=== PATIENT | female | born 1960 | race Caucasian/White ===

== ENCOUNTER 2019-05-04 13:27 | Inpatient (IN) | payer OTHER ==
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
[2019-05-04 16:01] VITALS: BMI 80.1
[2019-05-04] MEDS ORDERED: hydrOXYzine PAMOATE 25 MG CAPSULE (FP) PO PRN (16:10)
[2019-05-04] MEDS ORDERED: MENTHOL/PHENOL 1 EACH UD MM PRN (16:10)
[2019-05-04] MEDS ORDERED: guaiFENesin 200 MG/10 ML 10 ML UNIT-DOSE CUPS PO PRN (16:10)
[2019-05-04] MEDS ORDERED: MAGNESIUM HYDROX 2400MG/30ML ORAL SUSPENSION 30 ML CUP PO PRN (16:10)
[2019-05-04] MEDS ORDERED: LOPERAMIDE HCL 2 MG CAPSULE PO PRN (16:10)
[2019-05-04] MEDS ORDERED: MAGNESIUM CITRATE 300 ML BOTTLE PO PRN (16:10)
[2019-05-04] MEDS ORDERED: P-EPHED 60MG/TRIPROLIDI 2.5MG TABLET PO PRN (16:10)
[2019-05-04] MEDS ORDERED: MAG HYDROX/AL HYDROX/SIMETH 30 ML UNIT-DOSE CUP PO PRN (16:10)
[2019-05-04] MEDS ORDERED: ZAFIRLUKAST 10 MG PO SCH (16:30)
--- NOTE | 2019-05-04 16:36 | PN ---
Teaching Attending Note Name of Resident: Barbara Mabry ATTENDING PHYSICIAN STATEMENT I saw and evaluated the patient. I reviewed the resident's note and discussed the case with the resident. I agree with the resident's findings and plan as documented. SUBJECTIVE:this 58 years old female with cocaine dependence,schizophrenia,mmtp 3e0 mgs/day,last medicated today, iddm,hypertension,ambulation with cane OBJECTIVE: Vital Signs Temperature 98.8 F 05/04/19 16:24 Pulse Rate 74 05/04/19 16:24 Respiratory Rate 20 05/04/19 16:24 Blood Pressure 201/101 H 05/04/19 16:24 O2 Sat by Pulse Oximetry (%) ASSESSMENT AND PLAN: this 58 years old female with cocaine dependence,mmtp 30 mgs/day,iddm,htn, schizophrenia,for rehab as protocol , medically clear for rehab
[2019-05-04] MEDS ORDERED: glipiZIDE-XL 5 MG TAB.ER.24 PO SCH (17:15)
[2019-05-04] MEDS: metFORMIN HCL 500 MG TABLET (FP) PO SCH (18:12)
[2019-05-04] MEDS: LISINOPRIL 20 MG TABLET (FP) PO SCH (18:13)
[2019-05-04] MEDS: ASPIRIN COATED 81 MG TABLET.EC PO SCH (18:13)
[2019-05-04] MEDS: THIAMINE HCL 100 MG TABLET (FP) PO SCH (21:54)
[2019-05-04] MEDS: MONTELUKAST NA 10 MG TABLET PO SCH (21:54)
[2019-05-04] MEDS: ATORVASTATIN CA 10 MG TABLET (FP) PO SCH (21:54)
[2019-05-04] MEDS: INSULIN (LEVEMIR) 100 UNITS/ML UNITS SQ SCH (21:56)
[2019-05-04] MEDS: SELENIUM SULFIDE 2.5% LOTION 4 OZ. TP SCH (21:58)
[2019-05-04] MEDS ORDERED: MELATONIN 5 MG TABLETS PO PRN (22:00)
[2019-05-04] MEDS ORDERED: PT OWN MED DRAWER 7, Y5N ONE (22:32)
[2019-05-05] MEDS ORDERED: PT OWN MED DRAWER 7, Y5N ONE ×2 (05:57→23:18)
[2019-05-05] MEDS: glipiZIDE-XL 2.5 MG TAB.ER.24 PO SCH (06:41)
[2019-05-05] MEDS: metFORMIN HCL 500 MG TABLET (FP) PO SCH ×2 (06:41→16:39)
[2019-05-05] MEDS ORDERED: cloNIDine HCL 0.1 MG TABLET PO ONE (07:10)
--- NOTE | 2019-05-05 07:15 | PN ---
[facility] Progress Note Note: Patient's blood pressure this visit is B/P 184/110. Patient is asymptomatic Vital Signs Temperature 97.7 F 05/05/19 06:44 Pulse Rate 81 05/05/19 06:44 Respiratory Rate 18 05/05/19 06:44 Blood Pressure 184/110 H 05/05/19 06:44 O2 Sat by Pulse Oximetry (%) Action: Clonidine 0.1mg tablet oral ordered
--- NOTE | 2019-05-05 09:14 | EKG ---
Test Reason : Blood Pressure : / mmHG Vent. Rate : 063 BPM Atrial Rate : 063 BPM P-R Int : 158 ms QRS Dur : 082 ms QT Int : 424 ms P-R-T Axes : 043 003 029 degrees QTc Int : 433 ms NORMAL SINUS RHYTHM SEPTAL INFARCT , AGE UNDETERMINED ABNORMAL ECG NO PREVIOUS ECGS AVAILABLE Confirmed by MD Dain, Duane ([id number]) on 05/05/2019 9:14:10 AM Referred By: Confirmed By:Duane Gautam MD
[2019-05-05] MEDS: PRENATAL VITAMINS W/ FOLIC ACID TABLET (FP) PO SCH (09:19)
[2019-05-05] MEDS: ASPIRIN COATED 81 MG TABLET.EC PO SCH (09:19)
[2019-05-05] MEDS: LISINOPRIL 20 MG TABLET (FP) PO SCH (09:19)
[2019-05-05] MEDS: INSULIN (LEVEMIR) 100 UNITS/ML UNITS SQ SCH ×2 (09:20→21:39)
[2019-05-05] MEDS: SELENIUM SULFIDE 2.5% LOTION 4 OZ. TP SCH (09:20)
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
[2019-05-05] MEDS ORDERED: METHADONE HCL 10 MG TABLET PO ONE (11:06)
[2019-05-05 11:41] LABS: HEMATOCRIT 37.2 % (32.4-45.2); HEMOGLOBIN 12.3 GM/dL (10.7-15.3); MCH 27.1 pg (25.7-33.7); MCHC 32.9 g/dl (32.0-36.0); MEAN CELL VOLUME 82.4 fl (80-96); MEAN PLT VOLUME 11.2 fl (7.5-11.1); PLATELET COUNT 140 K/MM3 (134-434); RBC 4.52 M/mm3 (3.60-5.2); RDW 14.3 % (11.6-15.6); WHITE BLOOD COUNT 6.3 K/mm3 (4.0-10.0)
[2019-05-05 11:45] LABS: EPI CELLS 5.9 /HPF (0-5/HPF); HYALINE CASTS 1 /lpf (0-8); URINE APPEARANCE CLEAR; URINE BACTERIA 138.3 /hpf (NEGATIVE); URINE BILIRUBIN NEGATIVE (NEGATIVE); URINE COLOR YELLOW; URINE GLUCOSE (UA) 3+ (NEGATIVE); URINE KETONE NEGATIVE (NEGATIVE); URINE LEUK ESTERASE NEGATIVE (NEGATIVE); URINE NITRITE NEGATIVE (NEGATIVE); URINE PROTEIN 2+ (NEGATIVE); URINE RBC 3 /hpf (0-4); URINE UROBILINOGEN 0.2 mg/dL (0.2-1.0); URINE WBC 2 /hpf (0-5)
[2019-05-05 11:53] LABS: ALBUMIN 2.6 g/dl (3.4-5.0); BILIRUBIN,TOTAL 0.2 mg/dL (0.2-1); BLOOD UREA NITROGEN 14.7 mg/dL (7-18); CALCIUM 8.7 mg/dL (8.5-10.1); CREATININE 0.7 mg/dL (0.55-1.3); POTASSIUM 4.1 mmol/L (3.5-5.1); TOT PROT 7.2 g/dl (6.4-8.2)
[2019-05-05] MEDS: NICOTINE POLACRILEX 2 MG GUM BC PRN (14:04)
[2019-05-05 15:18] LABS: RPR NONREACTIVE (NONREACTIVE)
[2019-05-05] MEDS: INSULIN SLIDING SCALE (NOVOLOG) 1 VIAL SQ SCH ×2 (16:30→21:57)
[2019-05-05] MEDS: THIAMINE HCL 100 MG TABLET (FP) PO SCH (21:37)
[2019-05-05] MEDS: MONTELUKAST NA 10 MG TABLET PO SCH (21:37)
[2019-05-05] MEDS: ATORVASTATIN CA 10 MG TABLET (FP) PO SCH (21:37)
[2019-05-06] MEDS ORDERED: PT OWN MED DRAWER 7, Y5N ONE ×2 (03:03→08:34)
[2019-05-06] MEDS: METHADONE HCL 10 MG TABLET PO SCH (06:20)
[2019-05-06] MEDS: metFORMIN HCL 500 MG TABLET (FP) PO SCH ×2 (06:21→16:42)
[2019-05-06] MEDS: glipiZIDE-XL 2.5 MG TAB.ER.24 PO SCH (06:21)
[2019-05-06] MEDS: INSULIN (LEVEMIR) 100 UNITS/ML UNITS SQ SCH ×2 (07:35→21:25)
[2019-05-06] MEDS: INSULIN SLIDING SCALE (NOVOLOG) 1 VIAL SQ SCH ×4 (07:38→21:27)
[2019-05-06] MEDS: SELENIUM SULFIDE 2.5% LOTION 4 OZ. TP SCH (09:05)
[2019-05-06] MEDS: LISINOPRIL 20 MG TABLET (FP) PO SCH (09:05)
[2019-05-06] MEDS: PRENATAL VITAMINS W/ FOLIC ACID TABLET (FP) PO SCH (09:06)
[2019-05-06] MEDS: ASPIRIN COATED 81 MG TABLET.EC PO SCH (09:06)
[2019-05-06] MEDS: ARIPiprazole 2 MG TABLET PO SCH (11:00)
[2019-05-06] MEDS ORDERED: INSULIN (NOVOLOG) ASPART 100 UNITS/ML 10ML VIAL ONE ×2 (11:41→16:32)
[2019-05-06] MEDS: THIAMINE HCL 100 MG TABLET (FP) PO SCH (21:24)
[2019-05-06] MEDS: MONTELUKAST NA 10 MG TABLET PO SCH (21:24)
[2019-05-06] MEDS: ATORVASTATIN CA 10 MG TABLET (FP) PO SCH (21:24)
[2019-05-07] MEDS ORDERED: PT OWN MED DRAWER 7, Y5N ONE ×2 (03:16→08:40)
[2019-05-07] MEDS: INSULIN SLIDING SCALE (NOVOLOG) 1 VIAL SQ SCH ×4 (06:21→21:20)
[2019-05-07] MEDS: METHADONE HCL 10 MG TABLET PO SCH (06:22)
[2019-05-07] MEDS: ACETAMINOPHEN 325 MG TABLET (FP) PO PRN (06:23)
[2019-05-07] MEDS: metFORMIN HCL 500 MG TABLET (FP) PO SCH ×2 (06:23→16:50)
[2019-05-07] MEDS: glipiZIDE-XL 2.5 MG TAB.ER.24 PO SCH (06:23)
[2019-05-07] MEDS: INSULIN (LEVEMIR) 100 UNITS/ML UNITS SQ SCH ×2 (07:16→21:19)
[2019-05-07] MEDS ORDERED: COLLOIDAL OATMEAL 1 BAR EACH TP PRN (08:38)
[2019-05-07] MEDS: ASPIRIN COATED 81 MG TABLET.EC PO SCH (09:46)
[2019-05-07] MEDS: PRENATAL VITAMINS W/ FOLIC ACID TABLET (FP) PO SCH (09:46)
[2019-05-07] MEDS: ARIPiprazole 2 MG TABLET PO SCH (09:46)
[2019-05-07] MEDS: LISINOPRIL 20 MG TABLET (FP) PO SCH (09:46)
[2019-05-07] MEDS: SELENIUM SULFIDE 2.5% LOTION 4 OZ. TP SCH (09:47)
[2019-05-07] MEDS: IBUPROFEN 400 MG TABLET (FP) PO PRN (09:48)
[2019-05-07] MEDS: NICOTINE POLACRILEX 2 MG GUM BC PRN (09:50)
--- NOTE | 2019-05-07 10:11 | PN ---
[facility] Progress Note Note: Vital Signs Temperature 97.0 F L 05/07/19 07:01 Pulse Rate 66 05/07/19 09:37 Respiratory Rate 18 05/06/19 06:44 Blood Pressure 128/84 05/07/19 09:37 O2 Sat by Pulse Oximetry (%) Laboratory Last Values WBC 6.3 K/mm3 (4.0-10.0) 05/05/19 08:10 RBC 4.52 M/mm3 (3.60-5.2) 05/05/19 08:10 Hgb 12.3 GM/dL (10.7-15.3) 05/05/19 08:10 Hct 37.2 % (32.4-45.2) 05/05/19 08:10 MCV 82.4 fl (80-96) 05/05/19 08:10 MCH 27.1 pg (25.7-33.7) 05/05/19 08:10 MCHC 32.9 g/dl (32.0-36.0) 05/05/19 08:10 RDW 14.3 % (11.6-15.6) 05/05/19 08:10 Plt Count 140 K/MM3 (134-434) 05/05/19 08:10 MPV 11.2 fl (7.5-11.1) H 05/05/19 08:10 Sodium 136 mmol/L (136-145) 05/05/19 08:10 Potassium 4.1 mmol/L (3.5-5.1) 05/05/19 08:10 Chloride 102 mmol/L (98-107) 05/05/19 08:10 Carbon Dioxide 30 mmol/L (21-32) 05/05/19 08:10 Anion Gap 4 MMOL/L (8-16) L 05/05/19 08:10 BUN 14.7 mg/dL (7-18) 05/05/19 08:10 Creatinine 0.7 mg/dL (0.55-1.3) 05/05/19 08:10 Est GFR (CKD-EPI)AfAm 109.91 05/05/19 08:10 Est GFR (CKD-EPI)NonAf 94.84 05/05/19 08:10 POC Glucometer 202 UNITS (80-120) 05/07/19 06:20 Random Glucose 310 mg/dL (74-106) H 05/05/19 08:10 Calcium 8.7 mg/dL (8.5-10.1) 05/05/19 08:10 Total Bilirubin 0.2 mg/dL (0.2-1) 05/05/19 08:10 AST 19 U/L (15-37) 05/05/19 08:10 ALT 30 U/L (13-61) 05/05/19 08:10 Alkaline Phosphatase 117 U/L (45-117) 05/05/19 08:10 Total Protein 7.2 g/dl (6.4-8.2) 05/05/19 08:10 Albumin 2.6 g/dl (3.4-5.0) L 05/05/19 08:10 Urine Color Yellow 05/05/19 09:00 Urine Appearance Clear 05/05/19 09:00 Urine pH 7.0 (5.0-8.0) 05/05/19 09:00 Ur Specific [place] 1.029 (1.010-1.035) 05/05/19 09:00 Urine Protein 2+ (NEGATIVE) H 05/05/19 09:00 Urine Glucose (UA) 3+ (NEGATIVE) H 05/05/19 09:00 Urine Ketones Negative (NEGATIVE) 05/05/19 09:00 Urine Blood Trace (NEGATIVE) 05/05/19 09:00 Urine Nitrite Negative (NEGATIVE) 05/05/19 09:00 Urine Bilirubin Negative (NEGATIVE) 05/05/19 09:00 Urine Urobilinogen 0.2 mg/dL (0.2-1.0) 05/05/19 09:00 Ur Leukocyte Esterase Negative (NEGATIVE) 05/05/19 09:00 Urine WBC (Auto) 2 /hpf (0-5) 05/05/19 09:00 Urine RBC (Auto) 3 /hpf (0-4) 05/05/19 09:00 Urine Casts (Auto) 1 /lpf (0-8) 05/05/19 09:00 U Epithel Cells (Auto) 5.9 /HPF (0-5/HPF) 05/05/19 09:00 Urine Bacteria (Auto) 138.3 /hpf (NEGATIVE) 05/05/19 09:00 RPR Titer Nonreactive (NONREACTIVE) 05/05/19 08:10 HIV 1&2 Antibody Screen Negative 05/05/19 08:10 HIV P24 Antigen Negative 05/05/19 08:10 TB (QFT) Incubation (.) 05/05/19 08:10 TB Test (QFT) Nil 0.05 IU/mL (.) 05/05/19 08:10 TB Test (QFT) Mitogen >10.00 IU/mL (.) 05/05/19 08:10 TB Test (QFT) Antigen 0.11 IU/mL (.) 05/05/19 08:10 TB Test (QFT) Negative (Negative) 05/05/19 08:10 TB Positive Criteria (.) 05/05/19 08:10 labs reviewed follow up with PCP upon d/c re:proteinuria most like d/t DMII
[2019-05-07] MEDS ORDERED: INSULIN (NOVOLOG) ASPART 100 UNITS/ML 10ML VIAL ONE (16:39)
[2019-05-07] MEDS: ATORVASTATIN CA 10 MG TABLET (FP) PO SCH (21:16)
[2019-05-07] MEDS: THIAMINE HCL 100 MG TABLET (FP) PO SCH (21:16)
[2019-05-07] MEDS: MONTELUKAST NA 10 MG TABLET PO SCH (21:16)
[2019-05-08] MEDS ORDERED: PT OWN MED DRAWER 7, Y5N ONE ×2 (03:34→08:10)
[2019-05-08] MEDS: metFORMIN HCL 500 MG TABLET (FP) PO SCH ×2 (06:51→17:13)
[2019-05-08] MEDS: METHADONE HCL 10 MG TABLET PO SCH (06:51)
[2019-05-08] MEDS: glipiZIDE-XL 2.5 MG TAB.ER.24 PO SCH (06:51)
[2019-05-08] MEDS: INSULIN SLIDING SCALE (NOVOLOG) 1 VIAL SQ SCH ×4 (06:52→22:23)
[2019-05-08] MEDS: INSULIN (LEVEMIR) 100 UNITS/ML UNITS SQ SCH ×2 (07:26→22:22)
[2019-05-08] MEDS: LISINOPRIL 20 MG TABLET (FP) PO SCH (09:06)
[2019-05-08] MEDS: ASPIRIN COATED 81 MG TABLET.EC PO SCH (09:06)
[2019-05-08] MEDS: PRENATAL VITAMINS W/ FOLIC ACID TABLET (FP) PO SCH (09:06)
[2019-05-08] MEDS: SELENIUM SULFIDE 2.5% LOTION 4 OZ. TP SCH (09:07)
[2019-05-08] MEDS: NICOTINE POLACRILEX 2 MG GUM BC PRN (09:42)
[2019-05-08] MEDS: ARIPiprazole 2 MG TABLET PO SCH (11:00)
[2019-05-08] MEDS: ARTIFICIAL TEARS (POLYVINYL ALCOHOL) OPTH DROPS OU SCH ×2 (13:50→22:22)
[2019-05-08] MEDS: THIAMINE HCL 100 MG TABLET (FP) PO SCH (21:24)
[2019-05-08] MEDS: MONTELUKAST NA 10 MG TABLET PO SCH (21:24)
[2019-05-08] MEDS: ATORVASTATIN CA 10 MG TABLET (FP) PO SCH (21:24)
[2019-05-08] MEDS: ACETAMINOPHEN 325 MG TABLET (FP) PO PRN (21:26)
[2019-05-08] MEDS ORDERED: cloNIDine HCL 0.1 MG TABLET PO ONE (22:13)
--- NOTE | 2019-05-08 22:18 | PN ---
[facility] Progress Note Note: Patient's blood pressure is B/P 184/90. She complains of headache Vital Signs Temperature 97.0 F L 05/08/19 06:51 Pulse Rate 63 05/08/19 21:54 Respiratory Rate 18 05/08/19 12:05 Blood Pressure 184/90 05/08/19 22:13 O2 Sat by Pulse Oximetry (%) Action: Clonidine 0.1mg tablet oral ordered
[2019-05-09] MEDS ORDERED: ALBUTEROL SO4 8 GM HFA INHALER IH PRN (04:08)
[2019-05-09] MEDS ORDERED: ALBUTEROL SO4 0.083% IH SOL 2.5 MG/3 ML VIAL.NEB. NEB ONE (04:24)
[2019-05-09] MEDS ORDERED: PT OWN MED DRAWER 7, Y5N ONE ×2 (06:00→08:50)
[2019-05-09] MEDS: ARTIFICIAL TEARS (POLYVINYL ALCOHOL) OPTH DROPS OU SCH ×3 (06:58→21:46)
[2019-05-09] MEDS: glipiZIDE-XL 2.5 MG TAB.ER.24 PO SCH (06:59)
[2019-05-09] MEDS: metFORMIN HCL 500 MG TABLET (FP) PO SCH ×2 (06:59→16:40)
[2019-05-09] MEDS: METHADONE HCL 10 MG TABLET PO SCH (06:59)
[2019-05-09] MEDS: INSULIN SLIDING SCALE (NOVOLOG) 1 VIAL SQ SCH ×4 (07:13→21:46)
[2019-05-09] MEDS: INSULIN (LEVEMIR) 100 UNITS/ML UNITS SQ SCH ×2 (07:50→21:43)
[2019-05-09] MEDS ORDERED: ALBUTEROL SO4 2.5/IPRATROPIUM 0.5 INH SOL 3 ML VIAL.NEB. NEB SCH (08:00)
[2019-05-09] MEDS: PRENATAL VITAMINS W/ FOLIC ACID TABLET (FP) PO SCH (09:45)
[2019-05-09] MEDS: ARIPiprazole 2 MG TABLET PO SCH (09:46)
[2019-05-09] MEDS: ASPIRIN COATED 81 MG TABLET.EC PO SCH (09:46)
[2019-05-09] MEDS: LISINOPRIL 20 MG TABLET (FP) PO SCH (09:46)
[2019-05-09] MEDS: SELENIUM SULFIDE 2.5% LOTION 4 OZ. TP SCH (09:47)
[2019-05-09] MEDS: IBUPROFEN 400 MG TABLET (FP) PO PRN (11:22)
[2019-05-09] MEDS ORDERED: cloNIDine HCL 0.1 MG TABLET PO ONE (11:51)
--- NOTE | 2019-05-09 11:56 | PN ---
[facility] Progress Note Note: complained of headache history of hypertension Vital Signs Temperature 97.3 F L 05/09/19 06:58 Pulse Rate 73 05/09/19 09:17 Respiratory Rate 18 05/09/19 06:58 Blood Pressure 144/87 05/09/19 09:17 O2 Sat by Pulse Oximetry (%) clonidine 0.1 mg po given will monitoring bp
[2019-05-09] MEDS ORDERED: INSULIN (NOVOLOG) ASPART 100 UNITS/ML 10ML VIAL ONE (16:39)
[2019-05-09] MEDS: MONTELUKAST NA 10 MG TABLET PO SCH (21:45)
[2019-05-09] MEDS: THIAMINE HCL 100 MG TABLET (FP) PO SCH (21:45)
[2019-05-09] MEDS: ATORVASTATIN CA 10 MG TABLET (FP) PO SCH (21:45)
[2019-05-10] MEDS: ACETAMINOPHEN 325 MG TABLET (FP) PO PRN (02:52)
[2019-05-10] MEDS ORDERED: PT OWN MED DRAWER 7, Y5N ONE ×3 (05:56→14:12)
[2019-05-10] MEDS: ARTIFICIAL TEARS (POLYVINYL ALCOHOL) OPTH DROPS OU SCH ×3 (06:44→21:19)
[2019-05-10] MEDS: metFORMIN HCL 500 MG TABLET (FP) PO SCH ×2 (06:45→16:38)
[2019-05-10] MEDS: glipiZIDE-XL 2.5 MG TAB.ER.24 PO SCH (06:45)
[2019-05-10] MEDS: METHADONE HCL 10 MG TABLET PO SCH (06:45)
[2019-05-10] MEDS: INSULIN SLIDING SCALE (NOVOLOG) 1 VIAL SQ SCH ×4 (06:46→21:25)
[2019-05-10] MEDS: INSULIN (LEVEMIR) 100 UNITS/ML UNITS SQ SCH ×2 (07:49→21:18)
[2019-05-10] MEDS: LISINOPRIL 20 MG TABLET (FP) PO SCH (09:51)
[2019-05-10] MEDS: ASPIRIN COATED 81 MG TABLET.EC PO SCH (09:51)
[2019-05-10] MEDS: PRENATAL VITAMINS W/ FOLIC ACID TABLET (FP) PO SCH (09:51)
[2019-05-10] MEDS: ARIPiprazole 2 MG TABLET PO SCH (09:52)
[2019-05-10] MEDS: SELENIUM SULFIDE 2.5% LOTION 4 OZ. TP SCH (09:52)
[2019-05-10] MEDS ORDERED: INSULIN (NOVOLOG) ASPART 100 UNITS/ML 10ML VIAL ONE (12:12)
[2019-05-10] MEDS: ATORVASTATIN CA 10 MG TABLET (FP) PO SCH (21:18)
[2019-05-10] MEDS: THIAMINE HCL 100 MG TABLET (FP) PO SCH (21:18)
[2019-05-10] MEDS: MONTELUKAST NA 10 MG TABLET PO SCH (21:18)
[2019-05-10] MEDS ORDERED: cloNIDine HCL 0.1 MG TABLET PO ONE (23:53)
--- NOTE | 2019-05-11 00:01 | PN ---
[facility] Progress Note Note: Patient's blood pressure is B/P 179/96. Patient is asymptomatic Vital Signs Temperature 97.9 F 05/10/19 09:50 Pulse Rate 73 05/10/19 23:17 Respiratory Rate 18 05/10/19 23:17 Blood Pressure 179/96 H 05/10/19 23:17 O2 Sat by Pulse Oximetry (%) Action: Clonidine 0.1mg tablet oral ordered
[2019-05-11] MEDS ORDERED: PT OWN MED DRAWER 7, Y5N ONE ×3 (05:41→11:50)
[2019-05-11] MEDS: ARTIFICIAL TEARS (POLYVINYL ALCOHOL) OPTH DROPS OU SCH ×3 (05:44→21:25)
[2019-05-11] MEDS: METHADONE HCL 10 MG TABLET PO SCH (05:45)
[2019-05-11] MEDS: metFORMIN HCL 500 MG TABLET (FP) PO SCH ×2 (06:52→16:52)
[2019-05-11] MEDS: glipiZIDE-XL 2.5 MG TAB.ER.24 PO SCH (06:52)
[2019-05-11] MEDS: NICOTINE POLACRILEX 2 MG GUM BC PRN (06:53)
[2019-05-11] MEDS: INSULIN SLIDING SCALE (NOVOLOG) 1 VIAL SQ SCH ×4 (07:00→21:26)
[2019-05-11] MEDS: INSULIN (LEVEMIR) 100 UNITS/ML UNITS SQ SCH ×2 (07:46→21:23)
[2019-05-11] MEDS: ASPIRIN COATED 81 MG TABLET.EC PO SCH (09:25)
[2019-05-11] MEDS: LISINOPRIL 20 MG TABLET (FP) PO SCH (09:25)
[2019-05-11] MEDS: ARIPiprazole 2 MG TABLET PO SCH (09:26)
[2019-05-11] MEDS: SELENIUM SULFIDE 2.5% LOTION 4 OZ. TP SCH (09:26)
[2019-05-11] MEDS: PRENATAL VITAMINS W/ FOLIC ACID TABLET (FP) PO SCH (09:26)
[2019-05-11] MEDS: MONTELUKAST NA 10 MG TABLET PO SCH (21:23)
[2019-05-11] MEDS: ATORVASTATIN CA 10 MG TABLET (FP) PO SCH (21:24)
[2019-05-11] MEDS: THIAMINE HCL 100 MG TABLET (FP) PO SCH (21:24)
[2019-05-11] MEDS: cloNIDine HCL 0.1 MG TABLET PO PRN (23:46)
[2019-05-12] MEDS ORDERED: PT OWN MED DRAWER 7, Y5N ONE ×3 (03:20→16:19)
[2019-05-12] MEDS: metFORMIN HCL 500 MG TABLET (FP) PO SCH ×2 (06:21→17:22)
[2019-05-12] MEDS: glipiZIDE-XL 2.5 MG TAB.ER.24 PO SCH (06:21)
[2019-05-12] MEDS: ARTIFICIAL TEARS (POLYVINYL ALCOHOL) OPTH DROPS OU SCH ×3 (06:21→22:00)
[2019-05-12] MEDS: METHADONE HCL 10 MG TABLET PO SCH (06:23)
[2019-05-12] MEDS: INSULIN SLIDING SCALE (NOVOLOG) 1 VIAL SQ SCH ×4 (07:41→22:01)
[2019-05-12] MEDS: INSULIN (LEVEMIR) 100 UNITS/ML UNITS SQ SCH ×2 (07:42→22:00)
[2019-05-12] MEDS: PRENATAL VITAMINS W/ FOLIC ACID TABLET (FP) PO SCH (09:44)
[2019-05-12] MEDS: ARIPiprazole 2 MG TABLET PO SCH (09:45)
[2019-05-12] MEDS: LISINOPRIL 20 MG TABLET (FP) PO SCH (09:45)
[2019-05-12] MEDS: ASPIRIN COATED 81 MG TABLET.EC PO SCH (09:45)
[2019-05-12] MEDS: THIAMINE HCL 100 MG TABLET (FP) PO SCH (21:08)
[2019-05-12] MEDS: ATORVASTATIN CA 10 MG TABLET (FP) PO SCH (21:08)
[2019-05-12] MEDS: MONTELUKAST NA 10 MG TABLET PO SCH (21:08)
[2019-05-12] MEDS: ACETAMINOPHEN 325 MG TABLET (FP) PO PRN (21:09)
[2019-05-12] MEDS: cloNIDine HCL 0.1 MG TABLET PO PRN (22:48)
[2019-05-13] MEDS ORDERED: PT OWN MED DRAWER 7, Y5N ONE ×3 (03:23→19:39)
[2019-05-13] MEDS: metFORMIN HCL 500 MG TABLET (FP) PO SCH ×2 (06:34→16:59)
[2019-05-13] MEDS: glipiZIDE-XL 2.5 MG TAB.ER.24 PO SCH (06:34)
[2019-05-13] MEDS: ARTIFICIAL TEARS (POLYVINYL ALCOHOL) OPTH DROPS OU SCH ×3 (06:34→21:16)
[2019-05-13] MEDS: METHADONE HCL 10 MG TABLET PO SCH (06:35)
[2019-05-13] MEDS: INSULIN SLIDING SCALE (NOVOLOG) 1 VIAL SQ SCH ×4 (06:36→21:19)
[2019-05-13] MEDS: INSULIN (LEVEMIR) 100 UNITS/ML UNITS SQ SCH ×2 (07:35→21:16)
[2019-05-13] MEDS: ASPIRIN COATED 81 MG TABLET.EC PO SCH (09:32)
[2019-05-13] MEDS: ARIPiprazole 2 MG TABLET PO SCH (09:32)
[2019-05-13] MEDS: PRENATAL VITAMINS W/ FOLIC ACID TABLET (FP) PO SCH (09:33)
[2019-05-13] MEDS: LISINOPRIL 20 MG TABLET (FP) PO SCH (09:33)
--- NOTE | 2019-05-13 11:41 | PN ---
[facility] Progress Note Note: Patient is scheduled for discharge tomorrow. Script for 30 days supply of Abilify 2 mg/day will be electronically transmitted to [facility] [place] [address] [place] [address]
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
[2019-05-13] MEDS: THIAMINE HCL 100 MG TABLET (FP) PO SCH (21:17)
[2019-05-13] MEDS: MONTELUKAST NA 10 MG TABLET PO SCH (21:17)
[2019-05-13] MEDS: ATORVASTATIN CA 10 MG TABLET (FP) PO SCH (21:17)
[2019-05-13] MEDS: cloNIDine HCL 0.1 MG TABLET PO PRN (21:17)
[2019-05-14] MEDS ORDERED: PT OWN MED DRAWER 7, Y5N ONE ×2 (03:10→08:10)
[2019-05-14] MEDS: LISINOPRIL 20 MG TABLET (FP) PO SCH ×2 (06:28→09:02)
[2019-05-14] MEDS: ARTIFICIAL TEARS (POLYVINYL ALCOHOL) OPTH DROPS OU SCH (06:28)
[2019-05-14] MEDS: glipiZIDE-XL 2.5 MG TAB.ER.24 PO SCH (06:28)
[2019-05-14] MEDS: metFORMIN HCL 500 MG TABLET (FP) PO SCH (06:28)
[2019-05-14] MEDS: METHADONE HCL 10 MG TABLET PO SCH (06:29)
[2019-05-14] MEDS: INSULIN SLIDING SCALE (NOVOLOG) 1 VIAL SQ SCH (06:58)
[2019-05-14 07:05] VITALS: BP 179/87; PULSE 73; TEMP 98.2
[2019-05-14] MEDS: INSULIN (LEVEMIR) 100 UNITS/ML UNITS SQ SCH (07:33)
[2019-05-14] MEDS: ASPIRIN COATED 81 MG TABLET.EC PO SCH (09:01)
[2019-05-14] MEDS: ARIPiprazole 2 MG TABLET PO SCH (09:01)
[2019-05-14] MEDS: PRENATAL VITAMINS W/ FOLIC ACID TABLET (FP) PO SCH (09:01)
== END 2019-05-14 09:08 | disposition home or self-care (01) | DRG 772 ==
LOC: YASAS 13:27 → Y3E 16:53
PROVIDERS: ADMIT Neuromusculoskeletal Medicine & OMM; ATTEND Neuromusculoskeletal Medicine & OMM
PROC: HZ42ZZZ Group Counseling for Substance Abuse Treatment, Cognitive-Behavioral (ICD-10-PCS; principal; 2019-05-04)
DX: F14.20 Cocaine dependence, uncomplicated (principal); F11.20 Opioid dependence, uncomplicated; F17.210 Nicotine dependence, cigarettes, uncomplicated; F20.9 Schizophrenia, unspecified; F06.2 Psychotic disorder with delusions due to known physiological condition; I10 Essential (primary) hypertension; E11.9 Type 2 diabetes mellitus without complications; E78.00 Pure hypercholesterolemia, unspecified; J44.9 Chronic obstructive pulmonary disease, unspecified; B18.2 Chronic viral hepatitis C; B35.3 Tinea pedis; M19.90 Unspecified osteoarthritis, unspecified site; R26.2 Difficulty in walking, not elsewhere classified; Z99.89 Dependence on other enabling machines and devices; Z62.810 Personal history of physical and sexual abuse in childhood; Z79.4 Long term (current) use of insulin; Z79.84 Long term (current) use of oral hypoglycemic drugs; Z68.45 Body mass index [BMI] 70 or greater, adult
CPT/HCPCS: 36415; 80053; 81003; 82962; 85027; 86480; 86593; 87389; 93005; 93010; J0735